=== PATIENT | male | born 1985 | race Caucasian/White ===

== ENCOUNTER 2018-07-26 04:07 | Emergency (ER) | payer MEDICAID ==
[~2018-07-26] VITALS: Ht 172.7 cm; Wt 74.8 kg
[2018-07-26 04:14] VITALS: BP 108/70
[2018-07-26] MEDS ORDERED: KETOROLAC TROMETH 60MG/2ML VIAL IM ONE (05:15)
[2018-07-26] MEDS ORDERED: methylPREDNISolone SOD SUCC 125 MG/2 ML VL IM ONE (05:15)
== END 2018-07-26 06:10 | disposition home or self-care (01) ==
LOC: ER 04:08
DX: M25.562 Pain in left knee (principal); H00.011 Hordeolum externum right upper eyelid; Z91.012 Allergy to eggs
CPT/HCPCS: 73562; 96372; 99284; J1885; J2930

== ENCOUNTER 2018-07-27 13:58 | Emergency (ER) | payer MEDICAID ==
[~2018-07-27] VITALS: Ht 172.7 cm; Wt 74.8 kg
[2018-07-27 14:18] VITALS: BP 112/71
== END 2018-07-27 18:10 | disposition left against medical advice (07) ==
LOC: ER 13:58
DX: H57.11 Ocular pain, right eye (principal); Z53.21 Procedure and treatment not carried out due to patient leaving prior to being seen by health care provider

== ENCOUNTER 2018-07-28 02:30 | Emergency (ER) | payer MEDICAID ==
[~2018-07-28] VITALS: Ht 172.7 cm; Wt 74.8 kg
[2018-07-28 03:28] VITALS: BP 106/77
[2018-07-28] MEDS ORDERED: TETRACAINE HCL 0.5% OPTH(EYE) SOLN 4ML RIGHTEYE ONE (04:30)
== END 2018-07-28 04:49 | disposition home or self-care (01) ==
LOC: ER 02:39
DX: H00.011 Hordeolum externum right upper eyelid (principal); Z88.6 Allergy status to analgesic agent; Z91.030 Bee allergy status

== ENCOUNTER 2018-08-01 14:17 | Emergency (ER) | payer MEDICAID ==
[~2018-08-01] VITALS: Ht 172.7 cm; Wt 74.8 kg
[2018-08-01 14:24] VITALS: BP 118/79
== END 2018-08-01 19:07 | disposition home or self-care (01) ==
LOC: ER 14:22
DX: H00.011 Hordeolum externum right upper eyelid (principal); L03.211 Cellulitis of face; Z88.6 Allergy status to analgesic agent; Z91.030 Bee allergy status

== ENCOUNTER 2018-08-02 23:29 | Emergency (ER) | payer MEDICAID ==
[~2018-08-02] VITALS: Ht 172.7 cm; Wt 74.8 kg
[2018-08-02 23:48] VITALS: BP 125/70
== END 2018-08-03 04:39 | disposition left against medical advice (07) ==
LOC: ER 23:31
DX: H57.11 Ocular pain, right eye (principal); Z53.21 Procedure and treatment not carried out due to patient leaving prior to being seen by health care provider

== ENCOUNTER 2018-08-07 19:34 | Emergency (ER) | payer MEDICAID | END 2018-08-07 19:50 | disposition left against medical advice (07) | LOC: ER 19:34 | DX: S80.252A Superficial foreign body, left knee, initial encounter (principal); Z53.21 Procedure and treatment not carried out due to patient leaving prior to being seen by health care provider; X58.XXXA Exposure to other specified factors, initial encounter; Y93.89 Activity, other specified; Y92.89 Other specified places as the place of occurrence of the external cause; Y99.8 Other external cause status ==

== ENCOUNTER 2018-08-07 23:02 | Emergency (ER) | payer MEDICAID ==
[~2018-08-07] VITALS: Ht 172.7 cm; Wt 74.8 kg
[2018-08-08 00:19] LABS: Basophils # (auto) 0.2 uL; Basophils % (auto) 1.6 % (0.0-2.0); Eosinophils # (auto) 0.4 uL; Eosinophils % (auto) 3.7 % (0.0-7.0); Hematocrit 41.7 % (41.0-53.0); Hemoglobin 14.2 g/dL (13.5-17.5); Lymphocytes # (auto) 3.6 uL; Lymphocytes % (auto) 37.1 % (10.0-50.0); Mean Corpuscular Hemoglobin 30.9 pg (28.0-32.0); Mean Corpuscular Hgb Conc. 34.2 g/dL (32.0-36.0); Mean Corpuscular Volume 90.3 fL (80.0-100.0); Monocytes # (auto) 0.9 uL; Monocytes % (auto) 9.2 % (0.0-12.0); Neutrophils # (auto) 4.7 uL; Neutrophils % (auto) 48.4 % (37.0-80.0); Nucleated Red Blood Cells % 0.1 %; Platelet Count (auto) 269 10^3/uL (140-450); Red Blood Cells 4.61 10^6/uL (4.5-5.90); Red Cell Distribution Width 12.8 % (11.8-14.3); White Blood Cell 9.6 10^3/uL (4.4-10.8)
[2018-08-08 00:35] LABS: Albumin 3.9 g/dL (3.4-5.0); BUN/Creatinine Ratio 8.3; Calcium 8.5 mg/dL (8.5-10.1); Potassium 3.6 mmol/L (3.5-5.1)
[2018-08-08 00:38] LABS: Bilirubin, Total 0.3 mg/dL (0.2-1.0)
[2018-08-08] MEDS ORDERED: ONDANSETRON HCL 4 MG/2 ML VIAL IV ONE (03:00)
[2018-08-08] MEDS ORDERED: IOHEXOL 300 MG/ML 100ML BOTTLE IJ ONE (03:00)
[2018-08-08] MEDS ORDERED: KETOROLAC TROMETH 30 MG/ML 1ML VIAL IV ONE (03:00)
[2018-08-08 03:41] LABS: Blood Alcohol < 3.0 mg/dL (0-5); Lipase 484 U/L (73-393)
[2018-08-08 04:36] LABS: Urine Bacteria NONE SEEN /hpf (None Seen); Urine Blood Negative /uL (Negative); Urine Specific Gravity 1.019 (1.001-1.035); Urine WBC <1 /hpf (0 - 3)
[2018-08-08 05:02] LABS: Alcohol, Urine < 3.0 mg/dL (0-5); Amphetamine Screen, Urine NEGATIVE (NEGATIVE); Barbiturate Scree,Urine NEGATIVE (NEGATIVE); Benzodiazephine Screen, Urine NEGATIVE (NEGATIVE); Cannabinoid Screen, Urine NEGATIVE (NEGATIVE); Cocaine Screen, Urine NEGATIVE (NEGATIVE); Opiate Scree,Urine NEGATIVE (NEGATIVE); Phencyclidine Screen, Urine NEGATIVE (NEGATIVE)
[2018-08-08 08:37] VITALS: BP 112/69
== END 2018-08-08 08:41 | disposition home or self-care (01) ==
LOC: ER 23:04
DX: K52.9 Noninfective gastroenteritis and colitis, unspecified (principal); Z59.0 Homelessness
CPT/HCPCS: 36415; 73560; 73562; 74177; 80053; 80307; 80320; 81001; 82150; 83690; 85025; 96374; 96375; 99285; J1885; J2405; Q9967

== ENCOUNTER 2018-08-08 17:35 | Emergency (ER) | payer MEDICAID ==
[~2018-08-08] VITALS: Ht 172.7 cm; Wt 74.8 kg
[2018-08-08 17:44] VITALS: BP 123/80
== END 2018-08-09 01:00 | disposition left against medical advice (07) ==
LOC: ER 17:35
DX: H57.9 Unspecified disorder of eye and adnexa (principal); Z53.21 Procedure and treatment not carried out due to patient leaving prior to being seen by health care provider

== ENCOUNTER 2018-08-14 08:49 | Emergency (ER) | payer MEDICAID ==
[~2018-08-14] VITALS: Ht 172.7 cm; Wt 72.6 kg
[2018-08-14 08:50] VITALS: BP 121/80
== END 2018-08-14 09:36 | disposition home or self-care (01) ==
LOC: ER 08:49
DX: S80.252A Superficial foreign body, left knee, initial encounter (principal); Z59.0 Homelessness; X58.XXXA Exposure to other specified factors, initial encounter; Y93.89 Activity, other specified; Y99.8 Other external cause status; Y92.89 Other specified places as the place of occurrence of the external cause

== ENCOUNTER 2018-08-22 08:09 | Emergency (ER) | payer MEDICAID ==
[~2018-08-22] VITALS: Ht 172.7 cm; Wt 74.8 kg
[2018-08-22 08:27] VITALS: BP 142/67
[2018-08-22 09:13] LABS: Amphetamine Screen, Urine POSITIVE (NEGATIVE); Barbiturate Scree,Urine NEGATIVE (NEGATIVE); Benzodiazephine Screen, Urine NEGATIVE (NEGATIVE); Cannabinoid Screen, Urine NEGATIVE (NEGATIVE); Cocaine Screen, Urine NEGATIVE (NEGATIVE); Opiate Scree,Urine NEGATIVE (NEGATIVE)
[2018-08-22 09:22] LABS: Phencyclidine Screen, Urine NEGATIVE (NEGATIVE)
== END 2018-08-22 09:34 | disposition home or self-care (01) ==
LOC: ER 08:09
DX: M79.671 Pain in right foot (principal)
CPT/HCPCS: 73630; 80307